=== PATIENT | female | born 1980 | race Caucasian/White ===

== ENCOUNTER 2018-01-26 11:25 | Emergency (ER) | payer MEDICAID ==
[2018-01-26] MEDS ORDERED: Sodium Chloride 0.9% 1,000 ML IV ONE (12:04)
[2018-01-26 12:31] LABS: BASO % 0.2 % (0.0-2.0); EOS % 0.3 % (0.0-4.0); LYMPH # 2.2 K/uL (1.0-4.3); LYMPH % 14.5 % (20.0-40.0); MEAN CELL VOLUME 86.6 fL (81.0-99.0); MEAN CORPUSCULAR HEMOGLOBIN 29.3 pg (27.0-31.0); MEAN CORPUSCULAR HGB CONC 33.8 g/dL (33.0-37.0); MEAN PLATELET VOLUME 8.6 fL (7.2-11.7); MONO # 0.7 K/uL (0.0-0.8); MONO % 4.4 % (0.0-10.0); NEUT # 12.2 K/uL (1.8-7.0); NEUT % 80.6 % (50.0-75.0); NRBC % 0.1 % (0.0-2.0); RBC 4.45 Mil/uL (3.80-5.20); RED CELL DISTRIBUTION WIDTH 12.7 % (11.5-14.5); WHITE BLOOD COUNT 15.1 K/uL (4.8-10.8)
[2018-01-26 12:33] LABS: HCG,QUALITATIVE URINE NEGATIVE (NEGATIVE)
[2018-01-26] MEDS ORDERED: Piperacillin/Tazobact 3.375 gm 100 ML IV STA (12:35)
[2018-01-26 12:42] LABS: SQUAMOUS EPITHIAL 2 /hpf (0-5); URINE BACTERIA RARE (<OCC); URINE BILIRUBIN NEGATIVE (NEGATIVE); URINE BLOOD 2+ (NEGATIVE); URINE CLARITY Clear (Clear); URINE COLOR Yellow (YELLOW); URINE GLUCOSE (UA) NORMAL (Normal); URINE LEUKOCYTE ESTERASE NEG Leu/uL (Negative); URINE PROTEIN 2+ mg/dL (NEGATIVE); URINE UROBILINOGEN NORMAL mg/dL (0.2-1.0)
[2018-01-26 12:44] LABS: ALB/GLOB RATIO 1.2 (1.0-2.1); ALBUMIN 4.3 g/dL (3.5-5.0); ALT/SGPT 29 U/L (9-52); AST/SGOT 20 U/L (14-36); BLOOD UREA NITROGEN 7 mg/dL (7-17); CALCIUM 8.8 mg/dl (8.6-10.4); GFR NON-AFRICAN AMERICAN > 60
[2018-01-26] MEDS ORDERED: Piperacillin/Tazobact 3.375 gm 100 ML IVPB ONE (12:49)
--- NOTE | 2018-01-26 13:49 | C.PDOC ---
History Of Present Illness 37 yo female come in for evaluation of Right upper toothache gradually developed for past 1 week associated with worsening or Right facial swelling. As per patient, was seen by PMD and received Rx: Clindamycin without any improvement in facial swelling. Pt admits, also was seen by Dentist few days ago " nothing can be done now". Otherwise, pt denies fever, chills, headache, dizziness, drooling, trismus, SOB, dyspnea, cough, abd. pain, N/v/D, UTI sx. Ambulate to Ed for evaluation, not in resp. distress. Time Seen by Provider: 01/26/18 11:59 Chief Complaint (Nursing): Dental Pain History Per: Patient Past Medical History Reviewed: Historical Data, Nursing Documentation, Vital Signs Vital Signs: Last Vital Signs Temp 98.5 F 01/26/18 11:36 Pulse 109 H 01/26/18 11:36 Resp 18 01/26/18 11:36 BP 156/107 H 01/26/18 11:36 Pulse Ox 98 01/26/18 11:36 - Medical History PMH: Asthma Family History: States: No Known Family Hx - Social History Hx Tobacco Use: No Hx Alcohol Use: No Hx Substance Use: No - Immunization History Hx Tetanus Toxoid Vaccination: No Hx Influenza Vaccination: No Hx Pneumococcal Vaccination: No Review Of Systems Except As Marked, All Systems Reviewed And Found Negative. Constitutional: Negative for: Fever, Chills ENT: Positive for: Mouth Pain, Mouth Swelling. Negative for: Ear Discharge, N ose Discharge, Throat Pain, Throat Swelling Cardiovascular: Negative for: Chest Pain, Palpitations, Orthopnea, Edema, Light Headedness Respiratory: Negative for: Cough, Shortness of Breath, Wheezing Gastrointestinal: Negative for: Nausea, Vomiting, Abdominal Pain, Diarrhea Genitourinary: Negative for: Dysuria Musculoskeletal: Negative for: Neck Pain Skin: Negative for: Rash, Bruising Neurological: Negative for: Weakness, Numbness, Altered Mental Status, Headache, Dizziness Physical Exam - Physical Exam Appears: Well, Non-toxic, No Acute Distress Skin: Normal Color, Warm, Dry, No Rash Head: Normacephalic Eye(s): bilateral: PERRL Ear(s): Bilateral: Normal Nose: No Flaring, No Discharge Oral Mucosa: Moist, No Drooling, No Trismus Tongue: Normal Appearing Lips: Normal Appearing Teeth: No Dentures, Tender To Palpation (#7), Other (mild Right upper facial edema and scant erythema noted. No proximal streaking, no flactulance.) Gingiva: Erythema (#7), Swelling (#7), Tender (#7), Abscess (early#7) Throat: No Erythema, No Drooling, Other (Uvula midline, no edema.) Neck: Trachea Midline, Supple Lymphatic: No Adenopathy (cervical) Cardiovascular: Rhythm Regular, No Murmur, No JVD Respiratory: No Decreased Breath Sounds, No Accessory Muscle Use, No Stridor, No Wheezing Gastrointestinal/Abdominal: Soft, No Tenderness, No Distention, No Guarding Extremity: Normal ROM, No Pedal Edema, No Deformity, No Swelling Neurological/Psych: Oriented x3, Normal Speech, Normal Motor, Normal Sensation, Normal Reflexes ED Course And Treatment - Laboratory Results Result Diagrams: 01/26/18 12:19 01/26/18 12:19 O2 Sat by Pulse Oximetry: 98 Pulse Ox Interpretation: Normal Progress Note: Pt was OBS in ED for 2.5 hours and patient reports moderate improvement in sx. Mod improvement in Right facial swleling. pt appears is afebrile, hemodynamicaly stable. NOn-toxic. TOlerate Po wlel in ED, no evidence of resp. distress. PuslEOx 98% RA. neck: Supple, (-) JVD. ENT: early #7 tooth abscess, no droolint or trismus. Mod improvement of Right upper facial edema, no erythema. NO flactulance, uvula midline, no edema. Lungs: CTA B/L, BS equal B/L. CVS: (+)S1S2, reg. Abd: benign, (-) guaridng, (-) rebound. neuorlogicaly intact. Blood owrk review, mild leukocytosis noted with left shift. case discussed with ED attending, since sx mod improved, pt is afebrile, not in resp. distress, discharge with outpt F/u recommend. results review and discussed with patient. Pt has clinical findings c/w Right upper tooth abscess, facial swelling. Pt advised. ref. to f/u with PMD, Dentist In 1-2 days for re-eavl. return to ED if any worsening or new changes. Pt understand and agrees with plan. Disposition Counseled Patient/Family Regarding: Studies Performed, Diagnosis, Need For Followup, Rx Given - Disposition Referrals: Jorge Saldana MD [Medical Doctor] - Disposition: HOME/ ROUTINE Disposition Time: 13:33 Condition: STABLE Additional Instructions: Warm salty water tooth baths 2-3 times daily for 5 minutes Stop current antibiotic and change to new one Take medication as prescribed Follow up with Dentist in 1-2 days for re-evaluation. return to ED if any worsening or new changes. Prescriptions: Amoxicillin/Clavulanate [Augmentin 875 MG-125 MG] 1 tab PO BID #14 tab Prednisone [Deltasone] 60 mg PO DAILY #9 tablet Instructions: Tooth Abscess (DC) Forms: [facility] ([place]) - Clinical Impression Clinical Impression: Dental abscess
[2018-01-26 14:00] VITALS: BP 122/82; TEMP 98.8
[2018-01-26 14:14] VITALS: PULSE 95; RESP 16
[2018-01-26 14:17] VITALS: O2SAT 98
== END 2018-01-26 14:21 | disposition home or self-care (01) ==
LOC: C.ER 11:25
DX: K04.7 Periapical abscess without sinus (principal)
CPT/HCPCS: 80053; 81001; 84703; 85025; 87040; 96361; 96365; 96375; 99283; J1885; J2543; J2930; J7030